=== PATIENT | male | born 1960 | race Caucasian/White ===

== ENCOUNTER → 2017-11-07 | Outpatient (CLI) | payer OTHER ==
[~2017-11-07] MED LIST: GADAVIST IV PRN
--- NOTE | 2017-11-07 10:19 | DIAGNOSTIC IMAGING REPORT ---
BONY ORBITS 3 VIEWS CLINICAL HISTORY: MRI clearance. FINDINGS: 3 views of the bony orbits are obtained. No prior studies are available for comparison at the time of dictation. There is no radiodense/metallic foreign body seen in the region of the bony orbits. The bony orbits are intact as imaged. The visualized paranasal sinuses and the mastoid air cells appear clear. The imaged calvarium appears intact. IMPRESSION: There is no radiodense/metallic foreign body seen in the region of the bony orbits. Electronically signed by: Koby Jenkins M.D. 11/07/2017 10:17 AM Dictated Date/Time: 11/07/2017 10:17 AM
--- NOTE | 2017-11-08 08:15 | DIAGNOSTIC IMAGING REPORT ---
PROSTATE MRI COMBO CLINICAL HISTORY: ELEVATED PSA. TECHNIQUE: Multisequence, multiplanar MR imaging of the prostate was performed before and after the intravenous administration of 8.5 cc of Gadavist Additional postprocessing was performed on a separate [employer] workstation by the radiologist for 3-D volumetric segmentation of the prostate and contouring of region(s) of interest (DANNA) for targeting. COMPARISON: None. FINDINGS: Prostate: The prostate measures 4 x 3.7 x 3.5 cm (DynaCAD prostate boundary segmentation volume 26.64 mL). Moderate changes of benign prostatic hyperplasia. Precontrast T1 weighted imaging demonstrates no evidence of intrinsic T1 hyperintensity to suggest hemorrhage. Suspicious lesion(s) described below: Lesion (DynaCAD DANNA) 1: Note is made of a 1.4 x 0.6 x 0.6 cm focus of increased signal intensity on the diffusion weighted sequence within the right anterior aspect of the transitional zone within the mid gland. There may be subtle asymmetric corresponding hypointensity on the ADC map. A discrete corresponding lesion on the T2 sequence is difficult to visualize on this exam although the T2-weighted sequences are mildly complex by artifact. There are no additional foci of restricted diffusion within the prostate gland. The peripheral zone is unremarkable. Seminal vesicles normal. Bladder: Normal. Bowel: Visualized portion of the rectum normal. Peritoneum: No free fluid in the pelvis. Lymph nodes: No lymphadenopathy in the visualized portion of the pelvis. Vasculature: Iliac vessels patent. Abdominal wall: Normal. Osseous structures: Normal bone marrow signal intensity. IMPRESSION: 1. 1.4 x 0.6 x 0.6 cm focus of restricted diffusion within the right anterior aspect of the transitional zone within the mid gland without definite corresponding T2 correlate. Associated hypervascularity. This lesion is indeterminate. PI-RADS: 3. Intermediate (the presence of clinically significant cancer is equivocal). This lesion has been segmented for targeted biopsy. 2. Mild benign prostatic hyperplasia. Electronically signed by: Max Ashton M.D. 11/08/2017 8:14 AM Dictated Date/Time: 11/07/2017 12:14 PM
== END | disposition home or self-care (01) ==
LOC: C.MRIBC 09:14
PROVIDERS: ATTEND Urology
DX: N40.0 Benign prostatic hyperplasia without lower urinary tract symptoms (principal); H57.8 Other specified disorders of eye and adnexa